=== PATIENT | male | born 1990 | race Hispanic/Latino ===

== ENCOUNTER 2020-04-10 15:10 | Emergency (ER) | payer BC, SELFPAY ==
[2020-04-10 15:12] VITALS: BP 137/86; PULSE 76; RESP 16; TEMP 36.6; O2SAT 100; BMI 25.8
--- NOTE | 2020-04-10 15:29 | ED.VIS.EYE ---
History of Present Illness Chief Complaint: Eye Problem Narrative: Patient presenting for evaluation due to intermittent swelling of his right lower eyelid. Patient is non-Bengali speaking, history was obtained through a family member. Bag Machine Operator line was offered and was declined. Patient apparently over the course of about the last 2 months has been dealing with intermittent swelling of his right lower eyelid. He reports that it will come and go, it is not necessarily associated with pain or any sort of vision changes. It is associated intermittently with some drainage. Patient apparently has follow-up coming up with an golf course laborer in another week or so secondary to some blurry vision, but that is not at all associated with this intermittent eyelid swelling. No personal history of immunosuppression. Review of systems otherwise negative. Past Medical History - Allergies and Home Meds Allergies/Adverse Reactions: Allergies No Known Allergies Allergy (Verified 04/10/20 15:14) Prior records reviewed: Yes Past Medical History: None Smoking Status: Never smoker Review of Systems General: Denies: Fever Eyes: Reports: - - Eyelid swelling Respiratory: Denies: Dyspnea, Cough Gastrointestinal: Denies: Nausea Skin: Denies: Rash Hematologic: Denies: Easy bruising Physical Exam Eyelid: - - PRL, EOMI. Examination of the patient's right eye shows no evidence of conjunctival injection or scleral injection. There is some swelling of the medial portion of the patient's lower right eyelid with some mild whitish crusting in the eyelashes consistent with a hordeolum. Vital Signs/Narrative: Vital Signs Temp Pulse Resp BP Pulse Ox 04/10/20 15:12 97.9 F 76 16 137/86 H 100 Inital Vital Signs reviewed: Yes General: Well nourished, Well developed Head: Normocephalic, Atraumatic Cardiovascular: Regular rate, Regular rhythm Respiratory: No distress Skin: Normal color, No rash Neurological: Alert, Oriented x3 Psychological: Normal affect Diagnostic/Tx/Re-eval - Medical Decision Making Patient presented with eyelid swelling. Physical exam is consistent with a hordeolum. Patient be placed on erythromycin ophthalmic and was instructed on warm compresses. Patient significant other also stated that he has significant issues with snoring. I recommended primary care follow-up for a referral to get a sleep study. Patient was provided primary care follow-up via the follow-up list. He was discharged in stable condition. ED Disposition - Plan for ED Patient: Disposition: Home or Assisted Living Diagnosis: Stye external Instructions: ED Hordeolum Referrals: Ziyad De Jesus MD [STAFF PHYSICIAN] - As Needed
[2020-04-10] MEDS: Erythromycin Base 1 OPTH.TUBE 1 APPLIC RIGHT EYE (15:41)
[2020-04-10 15:42] VITALS: RESP 14
== END 2020-04-10 15:42 | disposition home or self-care (01) ==
LOC: ED 15:49
PROVIDERS: Emergency Provider Emergency Medicine
DX: H00.012 Hordeolum externum right lower eyelid (principal)
CPT/HCPCS: 99282

== ENCOUNTER 2021-01-22 14:04 | Outpatient (RCR) | payer MEDICARE, SELFPAY | END 2021-03-03 23:59 | LOC: IMMUN 14:04 | PROVIDERS: Visit Provider Family Medicine | DX: Z23 Encounter for immunization (principal) | CPT/HCPCS: 0001A; 0002A; 91300 ==

== ENCOUNTER 2023-06-27 08:43 | Emergency (ER) | payer MEDICAID, SELFPAY ==
[2023-06-27 08:44] VITALS: BP 129/75; PULSE 73; RESP 18; TEMP 36.6; O2SAT 100; BMI 25.0
--- NOTE | 2023-06-27 09:26 | CT_ITS ---
STUDY: CT ABDOMEN AND PELVIS WITHOUT CONTRAST REASON FOR EXAM: Male, 32 years old. Kidney Stone. Left flank pain. RADIATION DOSAGE (If Supplied By Facility): CTDIvol = ( 6.84 ) mGy, DLP = ( 329.91 ) mGycm TECHNIQUE: Transaxial images were obtained from the dome of the diaphragm to the symphysis pubis without oral contrast, and without intravenous contrast. Sagittal and coronal images were reconstructed. Individualized dose optimization techniques were used for this CT. COMPARISON: None. FINDINGS: The visualized lung bases are unremarkable. The visualized portions of the heart are within normal limits. Normal liver. Normal gallbladder and extrahepatic biliary system. Normal spleen. Normal pancreas. Normal bilateral adrenal glands. Normal right kidney. Normal left kidney. There is a small hiatal hernia. Normal small intestine. Normal colon. The appendix is visualized and appears normal. Normal abdominal aorta. Normal inferior vena cava. Normal retroperitoneum. There is a 2 mm calculus at the base of the bladder suggestive of a recently passed ureteral stone. There is a small umbilical hernia containing fat. Normal osseous structures. CT/Abdomen/Pelvis without Cont IMPRESSION: 2 mm calculus at the base of the bladder posteriorly suggestive of a recently passed ureteral calculus. No ureteral obstruction is seen at this time. Electronically Signed: Lorenzo Vo MD at 10:53 EDT ,
--- NOTE | 2023-06-27 09:27 | EX.ED.DYSGE1 ---
HPI History of Present Illness Chief Complaint: Flank Pain Informant: patient Narrative Narrative: 32-year-old male with no reported past medical history seen with sudden onset of left flank pain/left sided abdominal pain. Patient states he was driving when all of a sudden started. 30 minutes prior to arrival. The pain is intermittent nature. It does go down to his bladder area but does not have any associate testicular pain. Denies any urinary symptoms. Notes when he woke up this morning he was a little nauseous. He is now having more severe nausea and vomiting. States vomiting actually seems to make the symptoms better. Did not take any for symptoms prior to arrival. Denies any abdominal surgeries. Denies any fever or chills. Denies any known history of kidney stones. Denies any bowel symptoms. No other complaints at this time. Did not take anything for his symptoms prior to arrival. Was moving furniture around on Tuesday but denies any injury at that time. Interaction facilitated by significant other who is translating as patient is Nauruan-speaking. PFSH PFSH Medical History no medical history Home Medications ibuprofen 600 mg tablet 600 mg PO Q6H PRN pain #20 tabs 06/27/23 [Rx Last Taken Unknown] Allergy/AdvReac Type Severity Reaction Status Date / Time No Known Allergies Allergy Verified 06/27/23 08:46 Surgical History no surgical history Social History Smoking Status: Never smoker ROS ROS ED Constitutional Constitutional ED: Denies chills or fever(s) Cardiovascular Cardiovascular: Denies chest pain Respiratory/Chest Respiratory/Chest: Denies cough Gastrointestinal Gastrointestinal: Reports abdominal pain, nausea and vomiting; Denies constipation or diarrhea Genitourinary Genitourinary ED: Denies dysuria or hematuria Musculoskeletal Musculoskeletal: Reports back pain; Denies arthralgias Integumentary Denies rash Neurologic Neurologic: Denies headache(s) Psychiatric Psychiatric: Denies anxiety EXAM Physical Exam Const Vital Signs: 06/27/23 08:44 06/27/23 10:48 Temperature 97.9 F Temperature Source Temporal Pulse Rate 73 Respiratory Rate 18 Blood Pressure 129/75 H 120/72 Blood Pressure Mean 93 88 Pulse Ox 100 Oxygen Delivery Method Room Air Positive well nourished and well developed Constitutional Narrative: Uncomfortable appearing. General Appearance ED: well developed; Negative for diaphoretic HEENT Reports moist mucous membranes Eyes PERRL and EOMs intact bilaterally Neck supple Chest Wall inspection of chest normal and palpation of chest normal Resp normal respiratory effort and clear to auscultation bilaterally Cardio regular rate, regular rhythm and no murmurs GI normal to inspection, nondistended, normoactive bowel sounds, non-tender and non-distended GI Narrative: Points to his left flank area as the area of pain however its not reproducible with palpation Palpation: Negative for guarding Back/Spine no CVA tenderness Thoracic Spine / Upper Back: Negative for thoracic spinal tenderness or paraspinal muscle tenderness Lumbar Spine / Lower Back: Negative for lumbar spinal tenderness Extremity normal to inspection Neuro oriented x3 Sensorium / Orientation: alert Motor Exam: Negative for general weakness Psych mental status grossly normal Skin no rashes or lesions noted and no wounds MDM MDM MDM Narrative Medical decision making narrative: Evaluate for sudden onset of left-sided flank pain. Physical exam and HPI most consistent with renal colic. Differential also includes pyelonephritis, small bowel obstruction and gastritis but I think this is less likely. No overlying rash or skin changes. Vital signs are normal. Will address symptoms with fluids, Zofran, morphine and Toradol and obtain a CT of the abdomen pelvis as well as CBC and BMP. urinalysis is pending. Lab work largely unremarkable. Normal kidney function. Urinalysis shows hematuria but not consistent with infection. CT abdomen pelvis shows a 2 mm stone at the base of the bladder consistent with a recently passed ureteral calculus with no further obstruction seen. Again this is highly consistent with the patient's presentation of a kidney stone. Patient's pain resolved while in the emergency room and now he just mildly achy in the area. Will be prescribed Motrin. We will follow-up with PCP. Is not have an obstructing stone at this time I do not think he requires urgent urology follow-up and is given outpatient follow-up information for urology. Patient and significant other agreeable with plan of care. Patient discharged home in stable and improved condition. Lab Data Labs: Laboratory Results - last 24 hr 06/27/23 06/27/23 09:30 10:50 WBC 10.8 RBC 5.49 Hgb 15.0 Hct 45.5 MCV 82.9 MCH 27.3 MCHC 33.0 RDW Std Deviation 37.7 RDW Coeff of Rufus 12.5 Plt Count 326 MPV 8.6 Immature Gran % (Auto) 0.600 Neut % (Auto) 69.6 Lymph % (Auto) 24.7 [place] % (Auto) 4.2 Eos % (Auto) 0.6 Baso % (Auto) 0.3 Absolute Neuts (auto) 7.5 Absolute Lymphs (auto) 2.67 Nucleated RBC % 0 Sodium 141 Potassium 4.2 Chloride 109 H Carbon Dioxide 24.0 Anion Gap 8 BUN 20 H Creatinine 1.18 Estim Creat Clear Calc 87.75 Est GFR (MDRD) Af Amer 92 Est GFR (MDRD) Non-Af 76 BUN/Creatinine Ratio 16.9 Glucose 134 H Calcium 9.2 Urine Color Yellow Urine Clarity Clear Urine pH 6.0 Ur Specific [place] 1.015 Urine Protein 15 H Urine Glucose (UA) Normal Urine Ketones Negative Urine Occult Blood 250 H Urine Nitrite Negative Urine Bilirubin Negative Urine Urobilinogen Normal Ur Leukocyte Esterase Negative Urine RBC 5-10 SEEN Urine WBC 0 SEEN Ur Squamous Epith Cells 0 SEEN Urine Bacteria RARE Urine Mucus 0 SEEN Radiography Diagnostic Testing: Clinical Impression(s) from Imaging Studies Abdomen/Pelvis CT 06/27/23 09:26 IMPRESSION: 2 mm calculus at the base of the bladder posteriorly suggestive of a recently passed ureteral calculus. No ureteral obstruction is seen at this time. Electronically Signed: Lorenzo Vo MD at 10:53 EDT , Discharge Plan Triage Chief Complaint: Flank Pain ED Provider: Genevieve Saenz Dx/Rx/DC Orders Clinical Impression: Kidney stone, Left flank pain Instructions: ED Kidney Stone, Passed Prescriptions: New ibuprofen 600 mg tablet 600 mg PO Q6H PRN (Reason: pain) Qty: 20 0RF Primary Care Provider: Cathy Ardon NP Referrals: Avery Jones MD [Med Staff - Active Staff] - As Needed Care Physician,No Primary [Non-Staff] - Activity Restrictions/Additional Instructions: Please follow-up with your primary care doctor. It looks like you had a 2 mm kidney stone on the left which did pass. It is now in your bladder and he should be able to urinate it out without any issues. You might still have some residual soreness and I you been prescribed some Motrin for this. Print Language: Nauruan Disposition Disposition: Home, Self Care
[2023-06-27 09:39] LABS: Absolute Lymphocyte Count 2.67 X10^3/uL (0.83-4.51); Absolute Neutrophil Count 7.5 X10^3/uL (2.0-7.7); Basophil# 0.03 X10^3/uL; Basophil% 0.3 % (0-1); Eosinophil# 0.06 X10^3/uL; Eosinophils% 0.6 % (0-5); Hematocrit 45.5 % (40-54); Lymphocyte # 2.67 X10^3/ul (0.83-4.51); Lymphocyte % 24.7 % (19-41); Mean Corpuscular Hgb 27.3 pg (27.0-32.0); Mean Corpuscular Volume 82.9 fL (80-94); Mean Platelet Vol. 8.6 fl (6.2-12.0); Monocyte# 0.45 X10^3/uL; Monocyte% 4.2 % (0-10); NRBC Flagged by Analyzer 0 % (0-5); Neutrophil # 7.51 X10^3/uL (2.7-7.7); Neutrophil % 69.6 % (47-70); Platelet Count 326 K/mm3 (150-450); RBC Distribution Width CV 12.5 % (11.6-14.6); RBC Distribution Width SD 37.7 fl (35.1-43.9); Red Blood Count 5.49 M/mm3 (4.6-6.2); White Blood Count 10.8 K/mm3 (4.4-11.0)
[2023-06-27 09:49] LABS: Anion Gap 8 (5-15); BUN 20 mg/dL (7-18); BUN/Creat Ratio 16.9 RATIO (10-20); Calcium,Total 9.2 mg/dL (8.5-10.1); Chloride 109 mmol/L (98-107); Creatinine, Serum 1.18 mg/dL (0.70-1.30); EST Glomerular Filtration Rate 76 mL/min (>60); Est Glom Filt Rate - Afr Amer 92 mL/min (>60); Estimated Creatinine Clearance 87.75 ml/min; Glucose 134 mg/dL (74-106); Potassium 4.2 mmol/L (3.5-5.1); Sodium Level 141 mmol/L (136-145)
[2023-06-27] MEDS: 0.9% Normal Saline (1000mL) 1,000 ML 250 ML IV (09:50)
[2023-06-27] MEDS: Morphine 4 MG/ML Syringe IV (09:50)
[2023-06-27] MEDS: Ondansetron 4 MG/2 ML Vial IV (09:51)
[2023-06-27] MEDS: Ketorolac 30 MG/ML Syringe 15 MG IV (09:51)
[2023-06-27 10:48] VITALS: BP 120/72
[2023-06-27 10:58] LABS: Mucous, Urine 0 SEEN /hpf (<or=2+); Squamous Epithelial Cells - UA 0 SEEN /hpf (0-5); White Blood Cells 0 SEEN /hpf (0-5)
[2023-06-27 11:17] LABS: Color, Urine Yellow (Yellow); Glucose, Dipstick Normal (Normal); Ketone-Dipstick Negative (Negative); Leukocyte Esterase-Dipstick Negative /ul (Negative); Nitrite-Dipstick Negative (Negative); Occult Blood-Urine 250 /ul (Negative); Protein-Dipstick 15 mg/dl (Negative); Specific Gravity, Urine 1.015 (1.002-1.030); Urine Bilirubin Dipstick Negative (Negative); Urine Clarity Clear (Clear); Urine Urobilinogen Normal (Normal)
[2023-06-27 11:35] LABS: Bacteria RARE /hpf (None Seen); Red Blood Cells-Urine 5-10 SEEN /hpf (0-5)
--- NOTE | 2023-06-27 12:15 | ED.RN ---
AT TIME OF ADMINISTRATION OF PAIN AND NAUSEA MEDICATIONS, THE COMPUTER IN ROOM 13 WOULD NOT RESTART OR LOG ON. THERE HAS BEEN [employer] SENT FOR THIS COMPUTER. VERIFICATION OF ADMINISTERED DOSES BY Riley TINAJERO.
[2023-06-27 12:59] VITALS: BP 125/74; PULSE 62; RESP 15; O2SAT 98
== END 2023-06-27 13:00 | disposition home or self-care (01) ==
PROVIDERS: Emergency Provider Emergency Medicine; PCP Nurse Practitioner Adult Health; Visit Provider Emergency Medicine
DX: N20.0 Calculus of kidney (principal); R10.9 Unspecified abdominal pain
CPT/HCPCS: 74176; 80048; 81001; 85025; 96374; 96375; 99283; J7030; A4216; J2405